=== PATIENT | female | born 1940 | race Caucasian/White ===

== ENCOUNTER 2017-09-03 21:45 | Emergency (ER) | payer MEDICARE, BC ==
[~2017-09-03] VITALS: Ht 162.6 cm; Wt 68.9 kg
--- NOTE | 2017-09-03 21:50 | NUR ---
PT c/o RT eye pain following prescription predisone eyedrops applied 40 min [employer]. States she has used drops before, and had no reaction.
--- NOTE | 2017-09-03 21:52 | NUR ---
at bedside for MSE.
[2017-09-03] MEDS ORDERED: TETRACAINE HCL 0.5% OPHT DROP 2 ML BOTTLE OP ONE (22:00)
[2017-09-03] MEDS ORDERED: FLUOROURACIL (22:04)
[2017-09-03] MEDS ORDERED: PREDNISOLONE AC 1% (22:04)
[2017-09-03] MEDS ORDERED: AMLODIPINE BESYLATE 2.5 MG (22:04)
[2017-09-03] MEDS ORDERED: ESCITALOPRAM TAB 20MG (22:04)
[2017-09-03] MEDS ORDERED: TETRACAINE HCL 0.5% OPHT DROP 2 ML BOTTLE ONE (22:05)
[2017-09-03] MEDS ORDERED: FLUORESCEIN SODIUM 1 MG STRIP ONE (22:21)
[2017-09-03] MEDS ORDERED: MORPHINE SULFATE 4 MG/1 ML DISP.SYRIN IM ONE (22:45)
[2017-09-03] MEDS ORDERED: ONDANSETRON 4 MG/2 ML VIAL IM ONE (22:45)
--- NOTE | 2017-09-03 22:54 | NUR ---
All belongings taken w/ patient. Will be driven home by significant other
[2017-09-03] MEDS ORDERED: ONDANSETRON 4 MG/2 ML VIAL ONE (22:55)
[2017-09-03] MEDS ORDERED: MORPHINE SULFATE 4 MG/1 ML DISP.SYRIN ONE (22:55)
--- NOTE | 2017-09-03 22:57 | NUR ---
Patient does not wish to proceed with medical care recommended by Dr. Stafford. Patient given information related to possible complications, up to and including , which could occur as a result of leaving the hospital at this time. Patient verbalizes understanding of risks involved due to leaving against medical advice. Patient has signed AMA form.
== END 2017-09-03 23:02 | disposition left against medical advice (07) ==
LOC: ER 21:46
DX: H57.11 Ocular pain, right eye (principal); H26.9 Unspecified cataract; I10 Essential (primary) hypertension
CPT/HCPCS: 96372 ×2; 99284; A4663; J2270; J2405; J7030

== ENCOUNTER 2023-12-17 06:23 | Inpatient (IN) | payer BC, MEDICARE ==
[~2023-12-17] VITALS: Ht 162.6 cm; Wt 79.4 kg
[~2023-12-17 06:23] MED LIST: AMLODIPINE BESYLATE 2.5 MG; ESCITALOPRAM TAB 20MG; FLUOROURACIL; PREDNISOLONE AC 1%
[2023-12-17] MEDS ORDERED: UMEC1BLS IH (06:52)
[2023-12-17] MEDS ORDERED: NIFE-60 PO (06:52)
[2023-12-17] MEDS ORDERED: LISI20TA30 PO (06:52)
[2023-12-17] MEDS ORDERED: ESOM40CA PO (06:52)
[2023-12-17] MEDS ORDERED: DORZ10DR13 OP (06:52)
[2023-12-17] MEDS ORDERED: ROSU10TA2 PO (06:52)
[2023-12-17] MEDS ORDERED: ESCI10TA PO (06:52)
[2023-12-17] MEDS ORDERED: KETOROLAC TROMETHAMINE 15 MG INJ ONE (06:57)
[2023-12-17] MEDS ORDERED: METOCLOPRAMIDE HCL 10 MG/2 ML VIAL ONE (06:57)
[2023-12-17 07:26] LABS: BASOPHILS % (AUTO) 0.2 % (0.0-2.0); EOSINOPHILS % (AUTO) 0.1 % (0.0-7.0); HEMATOCRIT 39.6 % (31.2-41.9); HEMOGLOBIN 13.5 g/dL (10.9-14.3); LYMPHOCYTES # (AUTO) 0.5 K/uL (0.8-4.8); LYMPHOCYTES % (AUTO) 5.7 % (20.5-51.5); MEAN CORPUSCULAR HEMOGLOBIN 31.2 uug (24.7-32.8); MEAN CORPUSCULAR HGB CONC 34 g/dL (32.3-35.6); MEAN CORPUSCULAR VOLUME 91.4 fL (75.5-95.3); MONOCYTES # (AUTO) 0.1 K/uL (0.1-1.30); MONOCYTES % (AUTO) 1.5 % (0.0-11.0); NEUTROPHILS # (AUTO) 7.7 K/uL (1.8-8.9); NEUTROPHILS % (AUTO) 92.5 % (38.5-71.5); PLATELET COUNT (AUTO) 258 K/uL (179-408); RED BLOOD CELL COUNT(AUTO) 4.33 MIL/uL (3.63-4.92); RED CELL DISTRIBUTION WIDTH 13.5 % (12.3-17.7); WHITE BLOOD COUNT (AUTO) 8.3 K/uL (3.8-11.8)
[2023-12-17] MEDS: IV NORMAL SALINE 1000 ML BAG IV ONE (07:30)
[2023-12-17] MEDS: METOCLOPRAMIDE HCL 10 MG/2 ML VIAL IV ONE (07:30)
[2023-12-17] MEDS: KETOROLAC TROMETHAMINE 15 MG INJ IVP ONE (07:31)
[2023-12-17 07:34] LABS: DIFFERENTIAL COMMENT 1
[2023-12-17 07:35] LABS: CARBON DIOXIDE 23 mmol/L (21-32); CHLORIDE 105 mmol/L (98-107); CREATININE 1.5 mg/dL (0.6-1.3); GLUCOSE 112 mg/dL (74-106); SODIUM SERUM 142 mmol/L (136-145); UREA NITROGEN, BLOOD 39 mg/dL (7-18)
[2023-12-17 07:44] LABS: ALANINE AMINOTRANSFERASE 32 U/L (14-59); ALBUMIN 3.8 g/dL (3.4-5.0); ALKALINE PHOSPHATASE 123 U/L (50-136); ASPARTATE AMINOTRANSFERASE 27 U/L (15-37); BILIRUBIN,DIRECT 0.1 mg/dL (0.0-0.2); BILIRUBIN,TOTAL 0.9 mg/dL (0.2-1.0); LIPASE 101 U/L (16-77); TOTAL PROTEIN, SERUM 7.6 g/dL (6.4-8.2)
[2023-12-17 08:38] LABS: *BILIRUBIN,URIN 1+ (NEGATIVE); *BLOOD, URINE NEGATIVE (NEGATIVE); *CLARITY,URINE CLEAR (CLEAR); *COLOR,URINE DARK YELLOW (YELLOW); *KETONES,URINE 1+ (NEGATIVE); *PROTEIN,URINE 1+ (NEGATIVE); LEUKOCYTE ESTERASE ,URINE NEGATIVE (NEGATIVE); NITRITE, URINE NEGATIVE (NEGATIVE); PH,URINE 6.5 (5.0-8.0); UGLUCOSE NEGATIVE (NEGATIVE)
[2023-12-17 08:48] LABS: BACTERIA,URINE NONE SEEN /HPF (NONE SEEN); RBC,URINE NONE SEEN /HPF (0-3); WBC,URINE 0-3 /HPF (0-3)
[2023-12-17 08:49] LABS: SQUAMOUS EPITHELIAL CELL,UR FEW /HPF (NONE SEEN)
[2023-12-17 10:58] VITALS: BP 168/66; TEMP 98.8; O2SAT 95
[2023-12-17] MEDS ORDERED: MORPHINE SULFATE 2 MG/1 ML DISP.SYRIN IV PRN (11:30)
[2023-12-17] MEDS ORDERED: ACETAMINOPHEN 325 MG TABLET PO PRN (14:30)
[2023-12-17] MEDS ORDERED: ROSU20TA2 PO (15:20)
[2023-12-17] MEDS: IV 1/2NS 1000 ML 1,000 ML IV PRN (15:48)
[2023-12-17] MEDS: PIPERACILLIN SODIUM/TAZOBACTAM 3.375 G in IV DEXTROSE 5% 50 ML IV SCH (15:49)
[2023-12-17] MEDS: NIFEdipine XL 30 MG TABSR PO SCH (15:51)
[2023-12-17] MEDS: ONDANSETRON 4 MG/2 ML VIAL IV PRN (15:52)
[2023-12-17 16:08] VITALS: O2SAT 97
[2023-12-17 16:25] VITALS: BP 139/54; TEMP 98; O2SAT 97
[2023-12-17] MEDS: DORZOLAMIDE/TIMOLOL OPHT DROP 10 ML BOTTLE RIGHTEYE SCH (17:10)
[2023-12-17 20:22] VITALS: BP 104/39; TEMP 98.8; O2SAT 99
[2023-12-18] VITALS (7 sets, daily range): BP systolic 93–115; BP diastolic 33–39; TEMP 97.6–99.3; O2SAT 97–99
[2023-12-18 07:29] LABS: BASOPHILS % (AUTO) 0.3 % (0.0-2.0); EOSINOPHILS % (AUTO) 0.4 % (0.0-7.0); HEMATOCRIT 31.9 % (31.2-41.9); HEMOGLOBIN 10.9 g/dL (10.9-14.3); LYMPHOCYTES % (AUTO) 8.2 % (20.5-51.5); MEAN CORPUSCULAR HEMOGLOBIN 31.4 uug (24.7-32.8); MEAN CORPUSCULAR HGB CONC 34 g/dL (32.3-35.6); MEAN CORPUSCULAR VOLUME 91.8 fL (75.5-95.3); MONOCYTES # (AUTO) 1.1 K/uL (0.1-1.30); MONOCYTES % (AUTO) 8.7 % (0.0-11.0); NEUTROPHILS # (AUTO) 10.3 K/uL (1.8-8.9); NEUTROPHILS % (AUTO) 82.4 % (38.5-71.5); PLATELET COUNT (AUTO) 213 K/uL (179-408); RED BLOOD CELL COUNT(AUTO) 3.47 MIL/uL (3.63-4.92); RED CELL DISTRIBUTION WIDTH 13.7 % (12.3-17.7); WHITE BLOOD COUNT (AUTO) 12.5 K/uL (3.8-11.8)
[2023-12-18 07:40] LABS: DIFFERENTIAL COMMENT 1
[2023-12-18 07:49] LABS: IRON, SERUM 11 ug/dL (50-175)
[2023-12-18 08:27] LABS: ALANINE AMINOTRANSFERASE 53 U/L (14-59); ALBUMIN 2.5 g/dL (3.4-5.0); ALKALINE PHOSPHATASE 78 U/L (50-136); ASPARTATE AMINOTRANSFERASE 40 U/L (15-37); BILIRUBIN,TOTAL 1.1 mg/dL (0.2-1.0); CALCIUM 8.4 mg/dL (8.5-10.1); CARBON DIOXIDE 23 mmol/L (21-32); CHLORIDE 101 mmol/L (98-107); CHOLESTEROL 103 mg/dL (<200); CREATININE 1.4 mg/dL (0.6-1.3); GLUCOSE 131 mg/dL (74-106); HDL CHOLESTEROL 54 mg/dL (40-60); MAGNESIUM 2.4 mg/dL (1.8-2.4); PHOSPHOROUS 3.6 mg/dL (2.5-4.9); POTASSIUM 3.8 mmol/L (3.5-5.1); SODIUM SERUM 133 mmol/L (136-145); TOTAL PROTEIN, SERUM 5.8 g/dL (6.4-8.2); TRIGLYCERIDES 46 MG/DL (30-150); UREA NITROGEN, BLOOD 34 mg/dL (7-18)
[2023-12-18] MEDS: ESCITALOPRAM OXALATE 10 MG TABLET PO SCH (08:39)
[2023-12-18 08:54] LABS: CREATINE KINASE, TOTAL 65 U/L (26-192)
[2023-12-18 08:58] LABS: THYROID STIMULATING HORMONE 1.825 mIU/mL (0.358-3.740)
[2023-12-18] MEDS: MORPHINE SULFATE 2 MG/1 ML DISP.SYRIN IV PRN (16:42)
[2023-12-19 04:27] VITALS: BP 125/41; TEMP 99.9; O2SAT 96
[2023-12-19 05:09] VITALS: O2SAT 97
[2023-12-19 06:23] LABS: BASOPHILS % (AUTO) 0.3 % (0.0-2.0); EOSINOPHILS # (AUTO) 0.1 K/uL (0.0-0.7); HEMATOCRIT 29.3 % (31.2-41.9); LYMPHOCYTES # (AUTO) 0.8 K/uL (0.8-4.8); LYMPHOCYTES % (AUTO) 6.3 % (20.5-51.5); MEAN CORPUSCULAR HEMOGLOBIN 31.2 uug (24.7-32.8); MEAN CORPUSCULAR HGB CONC 34 g/dL (32.3-35.6); MONOCYTES # (AUTO) 1.2 K/uL (0.1-1.30); MONOCYTES % (AUTO) 10.5 % (0.0-11.0); NEUTROPHILS # (AUTO) 9.7 K/uL (1.8-8.9); NEUTROPHILS % (AUTO) 81.9 % (38.5-71.5); PLATELET COUNT (AUTO) 185 K/uL (179-408); RED BLOOD CELL COUNT(AUTO) 3.22 MIL/uL (3.63-4.92); RED CELL DISTRIBUTION WIDTH 13.6 % (12.3-17.7); WHITE BLOOD COUNT (AUTO) 11.9 K/uL (3.8-11.8)
[2023-12-19 06:39] LABS: DIFFERENTIAL COMMENT 1
[2023-12-19 06:49] LABS: CALCIUM 8.5 mg/dL (8.5-10.1); CARBON DIOXIDE 22 mmol/L (21-32); CHLORIDE 104 mmol/L (98-107); CREATININE 1.2 mg/dL (0.6-1.3); GLUCOSE 126 mg/dL (74-106); MAGNESIUM 2.2 mg/dL (1.8-2.4); PHOSPHOROUS 3.2 mg/dL (2.5-4.9); POTASSIUM 3.5 mmol/L (3.5-5.1); SODIUM SERUM 137 mmol/L (136-145); UREA NITROGEN, BLOOD 21 mg/dL (7-18)
[2023-12-19 11:16] VITALS: BP 103/42; TEMP 98.6; O2SAT 98
[2023-12-19] MEDS: SOD FERRIC GLUC COMPLX/SUCROSE 125 MG in IV NORMAL SALINE 100 ML IV SCH (13:05)
[2023-12-19] MEDS ORDERED: SOD FERRIC GLUC COMPLX/SUCROSE 125 MG in IV NORMAL SALINE 100 ML IV SCH (14:00)
[2023-12-19] MEDS: PIPERACILLIN SODIUM/TAZOBACTAM 3.375 G in IV DEXTROSE 5% 100 ML IV SCH (14:22)
[2023-12-19 16:00] VITALS: BP 124/65; TEMP 97.6; O2SAT 98
[2023-12-19 20:00] VITALS: BP 137/54; TEMP 99.1; O2SAT 93
[2023-12-20 04:56] VITALS: O2SAT 97
[2023-12-20 06:00] VITALS: BP 136/50; TEMP 98.6; O2SAT 95
[2023-12-20 06:06] LABS: PTH, INTACT 30 pg/mL (15-65)
[2023-12-20 07:01] LABS: BASOPHILS % (AUTO) 0.3 % (0.0-2.0); EOSINOPHILS # (AUTO) 0.2 K/uL (0.0-0.7); HEMATOCRIT 27.9 % (31.2-41.9); HEMOGLOBIN 9.9 g/dL (10.9-14.3); LYMPHOCYTES # (AUTO) 1.2 K/uL (0.8-4.8); LYMPHOCYTES % (AUTO) 11.3 % (20.5-51.5); MEAN CORPUSCULAR HEMOGLOBIN 32.2 uug (24.7-32.8); MEAN CORPUSCULAR HGB CONC 35 g/dL (32.3-35.6); MEAN CORPUSCULAR VOLUME 90.9 fL (75.5-95.3); MONOCYTES # (AUTO) 1.1 K/uL (0.1-1.30); MONOCYTES % (AUTO) 10.6 % (0.0-11.0); NEUTROPHILS # (AUTO) 7.8 K/uL (1.8-8.9); NEUTROPHILS % (AUTO) 75.8 % (38.5-71.5); PLATELET COUNT (AUTO) 195 K/uL (179-408); RED BLOOD CELL COUNT(AUTO) 3.07 MIL/uL (3.63-4.92); RED CELL DISTRIBUTION WIDTH 13.4 % (12.3-17.7); WHITE BLOOD COUNT (AUTO) 10.3 K/uL (3.8-11.8)
[2023-12-20 07:10] LABS: ALANINE AMINOTRANSFERASE 29 U/L (14-59); ALBUMIN 2.3 g/dL (3.4-5.0); ALKALINE PHOSPHATASE 72 U/L (50-136); ASPARTATE AMINOTRANSFERASE 14 U/L (15-37); BILIRUBIN,TOTAL 0.6 mg/dL (0.2-1.0); CALCIUM 8.5 mg/dL (8.5-10.1); CARBON DIOXIDE 22 mmol/L (21-32); CHLORIDE 107 mmol/L (98-107); CREATININE 0.9 mg/dL (0.6-1.3); GLUCOSE 102 mg/dL (74-106); MAGNESIUM 1.9 mg/dL (1.8-2.4); POTASSIUM 3.5 mmol/L (3.5-5.1); SODIUM SERUM 138 mmol/L (136-145); TOTAL PROTEIN, SERUM 5.9 g/dL (6.4-8.2); UREA NITROGEN, BLOOD 12 mg/dL (7-18)
[2023-12-20 07:16] LABS: DIFFERENTIAL COMMENT 1
[2023-12-20] MEDS ORDERED: SWABABLE VALVE TRANSFER SET EA MC ONE (10:16)
[2023-12-20] MEDS ORDERED: IV NORMAL SALINE 250 ML IV ONE (10:16)
[2023-12-20] MEDS ORDERED: IOHEXOL 300MG/ML 100 ML INFUS..BTL ONE (10:16)
[2023-12-20 11:59] VITALS: BP 125/59; TEMP 98; O2SAT 96
[2023-12-20 12:13] LABS: HEMATOCRIT 30.4 % (31.2-41.9); HEMOGLOBIN 10.4 g/dL (10.9-14.3)
[2023-12-20 16:01] VITALS: O2SAT 96
[2023-12-20 16:26] VITALS: BP 126/54; TEMP 98.4; O2SAT 95
[2023-12-20 20:00] VITALS: BP 131/58; TEMP 97.9; O2SAT 93
[2023-12-21 06:00] VITALS: BP 129/47; TEMP 97.8; O2SAT 94
[2023-12-21] MEDS: PANTOPRAZOLE SODIUM 40 MG TABLET.DR PO SCH (06:13)
[2023-12-21 06:29] LABS: BASOPHILS # (AUTO) 0.1 K/UL (0.0-0.2); BASOPHILS % (AUTO) 1.1 % (0.0-2.0); EOSINOPHILS # (AUTO) 0.3 K/uL (0.0-0.7); EOSINOPHILS % (AUTO) 2.9 % (0.0-7.0); HEMOGLOBIN 9.9 g/dL (10.9-14.3); LYMPHOCYTES # (AUTO) 1.5 K/uL (0.8-4.8); LYMPHOCYTES % (AUTO) 15.8 % (20.5-51.5); MEAN CORPUSCULAR HEMOGLOBIN 30.9 uug (24.7-32.8); MEAN CORPUSCULAR HGB CONC 34 g/dL (32.3-35.6); MEAN CORPUSCULAR VOLUME 90.1 fL (75.5-95.3); MONOCYTES % (AUTO) 11.1 % (0.0-11.0); NEUTROPHILS # (AUTO) 6.5 K/uL (1.8-8.9); NEUTROPHILS % (AUTO) 69.1 % (38.5-71.5); PLATELET COUNT (AUTO) 230 K/uL (179-408); RED BLOOD CELL COUNT(AUTO) 3.21 MIL/uL (3.63-4.92); RED CELL DISTRIBUTION WIDTH 13.3 % (12.3-17.7); WHITE BLOOD COUNT (AUTO) 9.4 K/uL (3.8-11.8)
[2023-12-21 06:44] LABS: DIFFERENTIAL COMMENT 1
[2023-12-21 07:00] LABS: ALANINE AMINOTRANSFERASE 25 U/L (14-59); ALBUMIN 2.3 g/dL (3.4-5.0); ALKALINE PHOSPHATASE 62 U/L (50-136); ASPARTATE AMINOTRANSFERASE 10 U/L (15-37); BILIRUBIN,TOTAL 0.5 mg/dL (0.2-1.0); CALCIUM 8.6 mg/dL (8.5-10.1); CARBON DIOXIDE 23 mmol/L (21-32); CHLORIDE 105 mmol/L (98-107); CREATININE 0.9 mg/dL (0.6-1.3); GLUCOSE 96 mg/dL (74-106); POTASSIUM 3.6 mmol/L (3.5-5.1); SODIUM SERUM 139 mmol/L (136-145); TOTAL PROTEIN, SERUM 5.9 g/dL (6.4-8.2); UREA NITROGEN, BLOOD 11 mg/dL (7-18)
[2023-12-21 09:08] LABS: A/G RATIO 1.1 (0.7-1.7); ALBUMIN 2.8 g/dL (2.9-4.4); ALPHA-1-GLOBULIN 0.4 g/dL (0.0-0.4); ALPHA-2-GLOBULIN 0.8 g/dL (0.4-1.0); BETA GLOBULIN 0.8 g/dL (0.7-1.3); GAMMA GLOBULIN 0.6 g/dL (0.4-1.8); GLOBULIN, TOTAL 2.6 g/dL (2.2-3.9); M-SPIKE Not Observed g/dL (Not Observed)
[2023-12-21] MEDS ORDERED: ACID1TAB4 PO (10:36)
[2023-12-21] MEDS ORDERED: METR500T PO (10:36)
[2023-12-21] MEDS ORDERED: PANT40TA49 PO (10:36)
[2023-12-21] MEDS ORDERED: NIFE-35 PO (10:36)
[2023-12-21] MEDS ORDERED: CIPR-262 PO (10:36)
[2023-12-21] MEDS: ACIDOPHILUS/BULGARICUS CHEW TAB PO SCH (11:28)
[2023-12-21 12:00] VITALS: BP 130/80; TEMP 98.4; O2SAT 96
== END 2023-12-21 15:00 | disposition home or self-care (01) | DRG 377 ==
LOC: ER 06:25 → TELE3 10:20 → MEDSURG3 12-19 10:05
PROVIDERS: ADMIT Internal Medicine; ATTEND Internal Medicine
DX: K92.2 Gastrointestinal hemorrhage, unspecified (principal); N17.0 Acute kidney failure with tubular necrosis; A09 Infectious gastroenteritis and colitis, unspecified; E44.0 Moderate protein-calorie malnutrition; D68.59 Other primary thrombophilia; E86.0 Dehydration; E66.9 Obesity, unspecified; Z68.30 Body mass index [BMI] 30.0-30.9, adult; E78.5 Hyperlipidemia, unspecified; E88.09 Other disorders of plasma-protein metabolism, not elsewhere classified; E83.52 Hypercalcemia; I10 Essential (primary) hypertension; I45.10 Unspecified right bundle-branch block; I70.0 Atherosclerosis of aorta; J44.9 Chronic obstructive pulmonary disease, unspecified; Z87.891 Personal history of nicotine dependence; Z96.641 Presence of right artificial hip joint; Z90.710 Acquired absence of both cervix and uterus; K44.9 Diaphragmatic hernia without obstruction or gangrene
CPT/HCPCS: 36415; 71045; 82378; 83550; 83690; 83735; 83970; 84100; 84155; 84165; 84300; 84443; 84484; 85018; 85025; 85730; 93005; 94760; C1758; G0378; J1885; J2270; J2405; J2543; J2765; J2916; J7040; Q9967